=== PATIENT | male | born 1990 ===

== ENCOUNTER 2021-06-02 02:26 | Emergency (ER) | payer SELFPAY ==
[2021-06-02] MEDS ORDERED: Sodium Chloride 0.9% 2.5 ML Syringe FLUSH PRN (02:28)
[2021-06-02] MEDS ORDERED: Sodium Chloride 0.9% 10 ML Syringe FLUSH PRN (02:28)
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
[2021-06-02 03:12] LABS: BLOOD UREA NITROGEN,BUN 11 mg/dL (7.0-18.0); CHLORIDE,CL 99 mmol/L (98-107); GLUCOSE RANDOM 141 mg/dL (74-106); POTASSIUM,K 3.1 mmol/L (3.5-5.1); SODIUM,NA 134 mmol/L (136-148)
--- NOTE | 2021-06-02 04:29 | CR ---
INDICATION: Altered mental status. - COMPARISON: None. TECHNIQUE: Single portable AP view of the chest. FINDINGS: The lungs are hypoinflated. No focal consolidation, pneumothorax or effusion. Probable mild bibasilar cyst. Cardiac silhouette is enlarged, likely secondary to AP technique. There are no acute osseous findings. IMPRESSION: Hypoventilatory changes. No acute airspace disease. Dictated by Juan Agudelo MD @ 06/02/2021 4:28:31 AM Dictated by: Juan Agudelo MD @ 06/02/2021 04:28:40 (Electronically Signed)
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
== END 2021-06-02 06:07 ==
LOC: MW.ED 02:26
DX: T68.XXXA Hypothermia, initial encounter (principal); F10.129 Alcohol abuse with intoxication, unspecified; Y90.8 Blood alcohol level of 240 mg/100 ml or more; X31.XXXA Exposure to excessive natural cold, initial encounter
CPT/HCPCS: 36415; 70450; 70450-26; 71045; 71045-26; 72125; 72125-26; 80053; 80305-QW; 80307; 81003; 82947; 84443; 85025; 93005; 99285-25

== ENCOUNTER 2023-01-21 10:49 | Emergency (ER) | payer OTHER ==
[2023-01-21] MEDS ORDERED: Ibuprofen 800 MG Tab PO STA (11:09)
[2023-01-21] MEDS ORDERED: Lidocaine 1% 5 ML VIAL INJECT STA (11:09)
[2023-01-21] MEDS ORDERED: oxyCODONE 5 MG Tab PO STA (11:09)
[2023-01-21] MEDS ORDERED: Diphtheria,Pertussis(Acell),Tetanus Vaccine 0.5 ML Syringe IM ONE (11:09)
[2023-01-21] MEDS ORDERED: Acetaminophen 500 MG Tab PO STA (11:09)
== END 2023-01-22 16:39 | disposition home or self-care (01) ==
LOC: MW.ED 10:49
DX: S62.611A Displaced fracture of proximal phalanx of left index finger, initial encounter for closed fracture (principal); S61.512A Laceration without foreign body of left wrist, initial encounter; S67.191A Crushing injury of left index finger, initial encounter; S67.22XA Crushing injury of left hand, initial encounter; Z88.5 Allergy status to narcotic agent; Z23 Encounter for immunization; W23.1XXA Caught, crushed, jammed, or pinched between stationary objects, initial encounter; Y99.0 Civilian activity done for income or pay
CPT/HCPCS: 12002; 73110; 73130; 90471; 90715; 99283; A9270; 99284; J3490